=== PATIENT | male | born 1940 | race Caucasian/White ===

== ENCOUNTER → 2023-02-02 | Outpatient (CLI) | payer OTHER ==
--- NOTE | 2023-02-03 05:59 | DIREP ---
PROCEDURE:CHEST 2 VIEWS COMPARISON:None. INDICATIONS:Z00.00 Encounter for general adult medical examination w/o abnormal finding FINDINGS: LUNGS/PLEURA:Diffuse patchy airspace opacities largest in the bilateral lower lobes. Small bilateral pleural effusions. VASCULATURE:Normal. Unremarkable pulmonary vasculature. CARDIAC:Normal. No cardiac silhouette abnormality or cardiomegaly. MEDIASTINUM:Calcified aorta. BONES:Degenerative changes. OTHER:Negative. CONCLUSION:Diffuse patchy airspace opacities consistent with multi lobar pneumonia in the proper clinical setting. Small bilateral pleural effusions. Dictated by: Rob Kate M.D. on 02/03/2023 at 05:58 AM
== END | disposition home or self-care (01) ==
LOC: RAD 13:03
PROVIDERS: ATTEND Nurse Practitioner
DX: J90 Pleural effusion, not elsewhere classified (principal); I70.0 Atherosclerosis of aorta; M47.814 Spondylosis without myelopathy or radiculopathy, thoracic region; Z00.00 Encounter for general adult medical examination without abnormal findings
CPT/HCPCS: 71046